=== PATIENT | female | born 1960 | race Caucasian/White ===

== ENCOUNTER 2023-05-18 12:59 | Outpatient (OUT) | payer MEDICAID, SELFPAY ==
--- NOTE | 2023-05-18 13:02 | US_ITS ---
The [address] [address] Patient Name: SANDRA GRANADO MRN: [id number] date: 1960 Sex: F Assigned Patient Location: Current Patient Location: Accession/Order Number: [id number] Exam Date: 05/18/2023 13:02 Report Date: 05/18/2023 14:18 At the request of: CL WYNN Procedure: US pelvis w/ transvaginal EXAM: US pelvis w/ transvaginal HISTORY: POST MENOPAUSAL BLEEDING COMPARISON: None. TECHNIQUE: Real-time transabdominal and transvaginal imaging of the pelvis. Findings: Evaluation is limited due to patient's body habitus. The uterus measures 9.5 x 5.1 x 6.3 cm. No intrauterine mass. The endometrium is 2.0 cm and mildly heterogeneous. No fluid within the endometrial canal. Nabothian cysts. The bilateral ovaries are not visualized due to overlying bowel gas. No adnexal mass or free pelvic fluid. US/US pelvis w/ transvaginal IMPRESSION: 1. Thickened endometrium for a postmenopausal female. Primary diagnostic considerations include endometrial hyperplasia and malignancy. Electronically authenticated by: GRACE CARDOZA Date: 05/18/2023 14:18
== END 2023-05-18 13:00 | disposition home or self-care (01) ==
LOC: US 12:59
PROVIDERS: Visit Provider Obstetrics & Gynecology
DX: N95.0 Postmenopausal bleeding (principal); N85.00 Endometrial hyperplasia, unspecified
CPT/HCPCS: 76830; 76856; 88305

== ENCOUNTER 2023-06-02 12:10 | Outpatient (OUT) | payer MEDICAID, SELFPAY ==
--- NOTE | 2023-06-02 12:27 | XR_ITS ---
The [address] [address] Patient Name: SANDRA GRANADO MRN: [id number] date: 1960 Sex: F Assigned Patient Location: [facility] Current Patient Location: [facility] Accession/Order Number: [id number] Exam Date: 06/02/2023 13:25 Report Date: 06/02/2023 13:39 At the request of: CL WYNN Procedure: XR chest 2V EXAM: XR chest 2V HISTORY: PRE OP EXAM COMPARISON: None. TECHNIQUE: PA and lateral views of the chest. FINDINGS: The cardiomediastinal silhouette is normal. No focal consolidation is identified. There is no pneumothorax. No pleural effusion is noted. The osseous structures are intact. XR/XR chest 2V IMPRESSION: No acute cardiopulmonary process. Electronically authenticated by: KARIN OCONNOR Date: 06/02/2023 13:39
--- NOTE | 2023-06-02 12:27 | ECG_ITS ---
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
--- NOTE | 2023-06-02 13:23 | PM.PRESUREVA ---
History of Present Illness History of Present Illness Chief complaint: PMB thickened endometrium Narrative: Patient presents for preadmission testing accompanied by her daughter. The patient states she's having postmenopausal bleeding. She denies abdominal pain, nausea, vomiting, dysuria, hematuria, or any other complaints. The patient had a cardiac catheter done in two thousand fourteen, her last visit to cardiology was , she does have a history of congestive heart failure with one hospital admission, and dyspnea on exertion. Review of Systems ROS Narrative REVIEW OF SYSTEMS: Negative except as stated in HPI, ten or more systems reviewed. Constitutional: No fever , chills, weakness ENT: No sore throat or epistaxis Cardiovascular: No edema, chest pain, palpitations; admits to activity intolerance and Dyspnea on exertion Respiratory: No shortness of breath, cough, or wheezing Musculoskeletal: No joint pain or swelling Gastrointestinal: No abdominal pain, constipation, diarrhea, or vomiting Genitourinary: No dysuria or hematuria Neurological: No numbness, tingling, weakness, or headache Psychiatric: No mood changes PFSH PFSH Medical History (Updated 06/02/23 @ 13:30 by Cristiana Blankenship NP) Surgical History (Updated 06/02/23 @ 13:03 by Cristiana Blankenship NP) Family History (Updated 06/02/23 @ 13:03 by Cristiana Blankenship NP) Other Family history of COPD (chronic obstructive pulmonary disease) Family history of diabetes mellitus Family history of heart disease Family history of myocardial infarction Family history of stroke Social History (Updated 06/02/23 @ 12:58 by Cristiana Blankenship NP) Within the past year, how often did you have a drink containing alcohol: never Score interpretation: A score less than 3 is consistent with normal alcohol consumption. Smoking status: Never smoker Non-prescribed substance use: denies use Highest level of school completed/degree received: high school graduate Meds Home Medications and Allergies Home Medications Medication Instructions Recorded Confirmed Type albuterol 90 mcg/actuation aerosol mcg inhalation 06/02/23 History inhaler atenolol 50 mg tablet 50 mg PO Q12H 06/02/23 06/02/23 History atorvastatin 10 mg tablet 10 mg PO QDAY 06/02/23 06/02/23 History diltiazem HCl 60 mg tablet 120 mg PO BID 06/02/23 06/02/23 History docusate sodium 100 mg capsule 200 mg PO QDAY 06/02/23 06/02/23 History empagliflozin 25 mg tablet 25 mg PO QDAY 06/02/23 06/02/23 History (Jardiance) fluticasone propionate 50 1 spray intranasal Q12H 06/02/23 06/02/23 History mcg/actuation nasal spray,suspension hydrochlorothiazide 12.5 mg tablet 12.5 mg PO QDAY 06/02/23 06/02/23 History insulin aspart U-100 100 unit/mL 7 unit subcut QDAY 06/02/23 06/02/23 History (3 mL) subcutaneous pen insulin glargine 100 unit/mL (3 40 unit subcut QDAY 06/02/23 06/02/23 History mL) subcutaneous pen (Lantus Solostar U-100 Insulin) losartan 100 mg tablet 100 mg PO QDAY 06/02/23 06/02/23 History mirabegron 50 mg tablet,extended 50 mg PO Q24H 06/02/23 06/02/23 History release 24 hr (Myrbetriq) montelukast 10 mg tablet 10 mg PO QDAY 06/02/23 06/02/23 History olopatadine 0.2 % eye drops (Eye drp ophthalmic (eye) Q24H 06/02/23 History Allergy Itch Relief) sertraline 25 mg tablet 25 mg PO Q24H 06/02/23 06/02/23 History Allergies Allergy/AdvReac Type Severity Reaction Status Date / Time cefdinir Allergy Hives Verified 06/02/23 12:53 fentanyl Allergy Hives Verified 06/02/23 12:53 iodine Allergy Verified 06/02/23 12:53 midazolam Allergy Hives Verified 06/02/23 12:53 nitroglycerin Allergy Verified 06/02/23 12:53 pioglitazone Allergy Vomiting Verified 06/02/23 12:53 shellfish derived Allergy Vomiting Verified 06/02/23 12:53 tamsulosin Allergy Verified 06/02/23 12:53 verapamil Allergy Verified 06/02/23 12:53 Exam Narrative Exam Narrative: Constitutional: Awake, alert, comfortable, nontoxic, interactive, vital signs as charted Head: Normocephalic, atraumatic ENT: Poor dentition, naris patent, posterior oropharynx clear, oral mucosa moist Neck: Supple, normal appearance, normal range of motion, no meningeal signs, no lymphadenopathy Respiratory: No respiratory distress, breath sounds clear Cardiovascular: Bradycardic rate, regular rhythm, faint systolic murmur noted Abdomen: Nontender, normal bowel sounds, soft, no CVA tenderness Musculoskeletal: Normal gait, no swelling; 2+ pedal edema bilaterally Skin: No rashes or induration, no lesions, only visible skin inspected Neuro: No neurological deficits, normal sensation Psychiatric: Oriented ?3, normal affect Assessment and Plan Assessment and Plan (1) Fibroid: (2) Menopause: (3) Post-menopausal bleeding: (4) Thickened endometrium: Plan D and C, hysteroscopy, possible Myosure scheduled with Dr. Clarke 06/16/2023.
[2023-06-02 13:35] LABS: Basophils Percent Auto 0.5 % (0.2-2.0); Eosinophils Absolute Auto 0.1 10^3/uL (0.0-0.7); Eosinophils Percent Auto 1.6 % (0.9-7.0); Hematocrit 42.1 % (36.0-48.0); Hemoglobin 13.5 g/dL (12.0-16.0); Immature Granulocytes Abs Auto 0.03 10^3/uL (0.00-0.03); Immature Granulocytes Pct Auto 0.4 % (0.0-0.5); Lymphocytes Absolute Auto 1.6 10^3/uL (1.2-3.8); Lymphocytes Percent Auto 21.1 % (20.5-60.0); Mean Corpuscular HGB Conc 32.1 g/dL (29.9-35.2); Mean Corpuscular Hemoglobin 29.8 pg (26.7-34.0); Mean Corpuscular Volume 92.9 fL (81.0-99.0); Mean Platelet Volume 10.5 fL (9.5-13.5); Monocytes Absolute Auto 0.6 10^3/uL (0.3-0.8); Monocytes Percent Auto 7.9 % (1.7-12.0); Neutrophils Percent Auto 68.5 % (43.0-75.0); Platelet Count 212 10^3/uL (150-450); Red Blood Count 4.53 10^6/uL (4.20-5.40); White Blood Count 7.4 10^3/uL (4.0-11.0)
[2023-06-02 13:50] LABS: Anion Gap 10.5; BUN Creatinine Ratio 18.7; Calcium 8.1 mg/dL (8.5-10.1); Carbon Dioxide 30.6 mmol/L (21.0-32.0); Chloride 108 mmol/L (98-107); Estimated GFR (African America >60 (>=60); Estimated GFR (Non-African Ame >60 (>=60); Glucose 85 mg/dL (74-106); Potassium 4.1 mmol/L (3.5-5.1); Sodium 145 mmol/L (136-145)
[2023-06-02 13:57] LABS: Partial Thromboplastin Time 26.1 sec (22.3-36.2); Prothrombin Time 9.8 sec (9.0-11.6)
[2023-06-02 13:59] LABS: INR <0.93
== END 2023-06-02 12:11 | disposition home or self-care (01) ==
LOC: PST 12:10
PROVIDERS: Visit Provider Obstetrics & Gynecology
DX: Z01.812 Encounter for preprocedural laboratory examination (principal); Z01.810 Encounter for preprocedural cardiovascular examination; Z01.818 Encounter for other preprocedural examination; N95.0 Postmenopausal bleeding; D25.0 Submucous leiomyoma of uterus; R93.89 Abnormal findings on diagnostic imaging of other specified body structures; R00.1 Bradycardia, unspecified
CPT/HCPCS: 71046; 80048; 85025; 85610; 85730; 93005; G0463

== ENCOUNTER 2023-06-16 06:23 | Day surgery (SDC) | payer MEDICAID, SELFPAY ==
[2023-06-02 13:13] VITALS: BP 154/64; PULSE 56; RESP 20; TEMP 36.3; O2SAT 95; BMI 47.5
[2023-06-16] VITALS (12 sets, daily range): BP systolic 126–175; BP diastolic 47–81; PULSE 53–68; RESP 9–20; TEMP 36.1–36.2; O2SAT 87–99; BMI 47.5
[2023-06-16 06:34] LABS: Basophils Absolute Auto 0.1 10^3/uL (0.0-0.1); Basophils Percent Auto 0.5 % (0.2-2.0); Eosinophils Absolute Auto 0.1 10^3/uL (0.0-0.7); Eosinophils Percent Auto 1.5 % (0.9-7.0); Hematocrit 46.2 % (36.0-48.0); Hemoglobin 14.6 g/dL (12.0-16.0); Immature Granulocytes Abs Auto 0.04 10^3/uL (0.00-0.03); Immature Granulocytes Pct Auto 0.4 % (0.0-0.5); Lymphocytes Absolute Auto 2.7 10^3/uL (1.2-3.8); Lymphocytes Percent Auto 28.9 % (20.5-60.0); Mean Corpuscular HGB Conc 31.6 g/dL (29.9-35.2); Mean Corpuscular Hemoglobin 29.6 pg (26.7-34.0); Mean Corpuscular Volume 93.5 fL (81.0-99.0); Mean Platelet Volume 11.2 fL (9.5-13.5); Monocytes Absolute Auto 0.9 10^3/uL (0.3-0.8); Monocytes Percent Auto 9.7 % (1.7-12.0); Neutrophils Absolute Auto 5.4 10^3/uL (1.4-6.5); Platelet Count 230 10^3/uL (150-450); Red Blood Count 4.94 10^6/uL (4.20-5.40); White Blood Count 9.2 10^3/uL (4.0-11.0)
[2023-06-16 06:47] LABS: Glucometer 93 mg/dL (74-106)
[2023-06-16] MEDS: LACTATED RINGER'S SOLUTION 1,000 ML 50 ML IV (07:17)
--- NOTE | 2023-06-16 08:58 | PM.ONB ---
Brief Operative Note Date of procedure: 06/16/23 Pre-op diagnosis: pmb Post-op diagnosis: other (prolapsed uterine fibroid, thickened endometrium) Procedure: NAME OF PROCEDURE: [ D&c hysteroscopy] thickend endometrium, uterine fibroid vs large cervical polyp PROCEDURE: The patient was taken back to the Operating Room where she was prepped and draped in normal sterile fashion after being placed under general anesthesia without difficulty. She was also placed in the dorsal lithotomy position. A weighted speculum was placed in the patient?s vagina. The anterior lip of the cervix was identified and grasped with a single tooth tenaculum. The patient?s uterus was then sounded roughly to [? 11] cm. The patient was then gently dilated using Hegar dilators. The hysteroscope was passed through the patient?s cervix into the uterus. Both ostia were identified. Normal appearing endometrium. gross evidence of malignancy suspected. The MyoSure was then removed from the scope.? Survey of the patient's uterine cavity demonstrated removal of polyps. also removal of prolapse cervical vs uterine fibroid was performed. The hysteroscope was then removed from the patient's uterus. At that point, gentle curettage was performed until a gritty texture was noted. The endometrial curettings were sent out to pathology. The single tooth tenaculum was then removed from the patient's anterior lip of the cervix where excellent hemostasis was noted. All instruments were removed from the patient?s vagina. The patient tolerated the procedure well. Sponge, lap and needle counts were correct times two. The patient was taken to the Recovery Room in stable condition. Anesthesia: HOLDEN Surgeon: Eron Clarke Estimated blood loss (mL): 10 Pathology: other (endometrial curretting, uterine polyp vs cervical polyp vs uterine mass) Condition: stable Disposition: PACU
[2023-06-16] MEDS: LACTATED RINGER'S SOLUTION 1,000 ML 150 ML IV (09:15)
--- NOTE | 2023-06-16 09:23 | PC.NURSE ---
WARM COMPRESS APPLIED FOR COMFORT.
--- NOTE | 2023-06-16 09:42 | PC.NURSE ---
NO DRAINAGE ON ROGERS PAD AT TRANSFER TO POST-OP
--- NOTE | 2023-06-16 10:09 | PC.NURSE ---
Denies urge to void; peripad dry
--- NOTE | 2023-06-16 10:45 | PC.NURSE ---
Up to bathroom and voids clear yellow without difficulty; peripad dry
== END 2023-06-16 10:46 | disposition home or self-care (01) ==
PROVIDERS: Visit Provider Obstetrics & Gynecology
PROC: (CPT 952; principal; 2023-06-16 07:30)
DX: C54.1 Malignant neoplasm of endometrium (principal); N95.0 Postmenopausal bleeding; R93.89 Abnormal findings on diagnostic imaging of other specified body structures; J45.909 Unspecified asthma, uncomplicated; F32.A Depression, unspecified; I11.0 Hypertensive heart disease with heart failure; I50.9 Heart failure, unspecified; E78.5 Hyperlipidemia, unspecified; E66.01 Morbid (severe) obesity due to excess calories; Z68.42 Body mass index [BMI] 45.0-49.9, adult; E11.9 Type 2 diabetes mellitus without complications; Z79.899 Other long term (current) drug therapy; Z79.4 Long term (current) use of insulin
CPT/HCPCS: 58558; 36415; 82948; 85025; 88305; J1170; J2704